=== PATIENT | male | born 1965 | race Caucasian/White ===

== ENCOUNTER 2017-01-29 22:52 | Emergency (ER) | payer SELFPAY ==
[2017-01-30 01:21] VITALS: BP 107/77
== END 2017-01-30 01:19 | disposition home or self-care (01) ==
LOC: ED 22:52
DX: R42 Dizziness and giddiness (principal); R03.0 Elevated blood-pressure reading, without diagnosis of hypertension; E78.5 Hyperlipidemia, unspecified
CPT/HCPCS: J8597; Q0162